=== PATIENT | female | born 1995 | race Caucasian/White ===

== ENCOUNTER 2021-02-05 23:02 | Emergency (ER) | payer OTHER ==
[~2021-02-05] VITALS: Ht 157.5 cm; Wt 54.4 kg
[2021-02-05 23:02] VITALS: BP 130/86
[2021-02-05] MEDS ORDERED: POLY10DR3 EACHEYE (23:36)
== END 2021-02-06 00:05 | disposition home or self-care (01) ==
LOC: ER 23:16
DX: H10.9 Unspecified conjunctivitis (principal); K21.9 Gastro-esophageal reflux disease without esophagitis; F41.9 Anxiety disorder, unspecified; F32.9 Major depressive disorder, single episode, unspecified

== ENCOUNTER 2021-04-05 17:30 | Emergency (ER) | payer OTHER ==
[~2021-04-05] VITALS: Ht 160 cm; Wt 56.7 kg
[~2021-04-05 17:30] MED LIST: POLY10DR3 EACHEYE
[2021-04-05 17:47] VITALS: BP 116/63
[2021-04-05] MEDS ORDERED: LORA10TA68 PO (18:06)
[2021-04-05] MEDS ORDERED: CLIN300C12 PO (18:06)
[2021-04-05] MEDS ORDERED: CIPR5DRO EACHEYE (18:06)
== END 2021-04-05 18:45 | disposition home or self-care (01) ==
LOC: ER 17:33
DX: L03.213 Periorbital cellulitis (principal); K21.9 Gastro-esophageal reflux disease without esophagitis; F41.9 Anxiety disorder, unspecified; F32.9 Major depressive disorder, single episode, unspecified; Z79.899 Other long term (current) drug therapy